=== PATIENT | female | born 1950 | race Two or more races ===

== ENCOUNTER 2016-05-30 23:57 | Emergency (ER) | payer SELFPAY ==
[2016-05-31 00:15] VITALS: TEMP 98.8; BMI 21.2
[2016-05-31] MEDS ORDERED: NS 1,000 ML IV ONE (00:38)
--- NOTE | 2016-05-31 00:41 | EDPRACDOC ---
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 PT SAID THAT IT BECAME INFLAMED AND MORE PAINFUL TODAY. SHE ALSO HAD SOME VOMITING. SHE FEELS BETTER NOW. Pain Location: Reports: LLQ Pain Context: Reports: Spontaneous Pain Severity: Moderate Pain Quality: Reports: Sharp Pain Radiation: Reports: No Radiation : No Adult Abdominal History: Reports: Abdominal Surgery Female Abdominal History: Reports: Abdominal Surgery Modifying Factors: improves with: Nothing Female Associated Signs & Symptoms: Reports: Nausea, Vomiting Oral Intake: Decreased Urinary Output: Decreased ED Past Medical History - Patient Medical History Cardiac History: Reports: Hypertension, Hypercholesterolemia Systemic History: Reports: Diabetes. Denies: Cancer Surgical History: Reports: Other (CSXN). Denies: Hysterectomy - Social Medical History Smoking Status: Never smoker ETOH: None Substance Abuse: None EDM Review of Systems - Review of Systems ROS Negative Except as Marked: Yes All systems reviewed and were negative except as marked Gastrointestinal: Nausea, Pain, Vomiting - Physical Exam Constitutional: Alert (Awake), No apparent distress Oriented to: Time, Person, Place Last recorded Vital Signs: Last Vital Signs Temp 98.8 F 05/31/16 00:04 Pulse 89 05/31/16 00:04 Resp 22 05/31/16 00:04 BP 164/80 05/31/16 00:04 Pulse Ox 97 05/31/16 00:04 Oxygen Pulse Oxygen Saturation 97 O2 Device Room Air Oxygen Flow Rate Fraction of Inspired Oxygen ( FIO2) - HEENT Head: Normal ( normocephalic) Eye Exam: Normal (PERRL, EOMI, Sclera white) Oropharynx: Normal (Pharynx:Moist without exudate,Gums-no swelling) ENT EAC: Normal TMJ: Normal Nose: No Symptoms Reported (septum midline) Neck: Normal (FROM, trachea at midline) - Respiratory/Cardiovascular Respiratory: Normal - CTA (BBS clear to auscultation without adventitious sounds ) Cardiovascular: Normal (RRR without murmur, gallop or rub) - GI Auscultation: Normal (NABS) Palpation: Normal (Soft,No rebound or guarding, non distended) Tenderness: Mild, LLQ, Other (LARGE LLQ HERNIA. EASILY REDUCIBLE.) Allred's Sign: Negative - Hernia: Right: Normal, Left: Reducible - Musculoskeletal Back: Normal (Non-Tender) Extremities: Normal (Normal tone, Pulses 2+ No cyanosis or edema, FROM) - Integumentary Skin: Normal, Warm, Dry Lymphatics: Normal (no adenopathy) - Neurologic Memory Impaired: Normal Motor Function: Normal (Normal tone, Pulses 2+ No cyanosis or edema, FROM) Cranial Nerve: Normal (CN II-X11 intact sensation, strength 5/5) Cerebellar: Normal Mood Description: Normal Thought: Coherent Perception: Normal - Results 05/31/16 00:37 05/31/16 00:37 WBC 9.9 xk/uL (3.8-10.8) 05/31/16 00:37 RBC 4.74 xM/uL (4.20-5.40) 05/31/16 00:37 Hgb 14.8 g/dL (12.0-16.0) 05/31/16 00:37 Hct 43.3 % (36-47) 05/31/16 00:37 MCV 91 fL (81-99) 05/31/16 00:37 MCH 31.1 pg (27-32) 05/31/16 00:37 MCHC 34.1 g/dl (33-36) 05/31/16 00:37 RDW 12.9 % (11.5-14.5) 05/31/16 00:37 Plt Count 231 xk/uL (130-400) 05/31/16 00:37 MPV 8.0 fL (7.4-10.4) 05/31/16 00:37 Neut % (Auto) 60.9 % (45-76) 05/31/16 00:37 Lymph % (Auto) 32.5 % (17-44) 05/31/16 00:37 [place] % (Auto) 5.6 % (3-10) 05/31/16 00:37 Eos % (Auto) 0.7 % (0-5) 05/31/16 00:37 Baso % (Auto) 0.3 % (0-2) 05/31/16 00:37 Absolute Neuts (auto) 5.94 xk/uL (1.7-8.2) 05/31/16 00:37 Absolute Lymphs (auto) 3.17 xk/uL (0.65-4.75) 05/31/16 00:37 PT 10.6 SEC (9.2-11.2) 05/31/16 00:37 INR 1.0 05/31/16 00:37 APTT 22.8 SEC (22-35) 05/31/16 00:37 Sodium 135 mEq/L (137-146) L 05/31/16 00:37 Potassium 3.6 mEq/L (3.5-5.1) 05/31/16 00:37 Chloride 100 mEq/L (98-107) 05/31/16 00:37 Carbon Dioxide 21 mMOL/L (22-33) L 05/31/16 00:37 Anion Gap 18 mEq/L (8-16) H 05/31/16 00:37 BUN 13 MG/DL (7-17) 05/31/16 00:37 Creatinine 0.40 MG/DL (0.52-1.04) L 05/31/16 00:37 Estimated GFR (MDRD) > 60 mL/min (>=60) 05/31/16 00:37 Glucose 339 MG/DL (70-99) H 05/31/16 00:37 Calculated Osmolality 273 MOs/Kg (270-290) 05/31/16 00:37 Lactic Acid 1.6 mEq/L (0.7-2.1) 05/31/16 00:37 Calcium 8.8 MG/DL (8.4-10.2) 05/31/16 00:37 Total Bilirubin 0.6 MG/DL (0.2-1.3) 05/31/16 00:37 AST 22 IU/L (14-36) 05/31/16 00:37 ALT 34 IU/L (9-52) 05/31/16 00:37 Alkaline Phosphatase 127 IU/L (55-165) 05/31/16 00:37 Troponin I < 0.01 ng/mL (<.04) 05/31/16 00:37 Total Protein 7.9 G/DL (6.3-8.2) 05/31/16 00:37 Albumin 4.1 G/DL (3.5-5.0) 05/31/16 00:37 Lipase 98 U/L (23-300) 05/31/16 00:37 Lab Results 05/31/16 05/31/16 05/31/16 00:37 00:37 00:37 WBC 9.9 RBC 4.74 Hgb 14.8 Hct 43.3 MCV 91 MCH 31.1 MCHC 34.1 RDW 12.9 Plt Count 231 MPV 8.0 Neut % (Auto) 60.9 Lymph % (Auto) 32.5 [place] % (Auto) 5.6 Eos % (Auto) 0.7 Baso % (Auto) 0.3 Absolute Neuts (auto) 5.94 Absolute Lymphs (auto) 3.17 PT 10.6 INR 1.0 APTT 22.8 Sodium Potassium Chloride Carbon Dioxide Anion Gap BUN Creatinine Estimated GFR (MDRD) Glucose Calculated Osmolality Lactic Acid 1.6 Calcium Total Bilirubin AST ALT Alkaline Phosphatase Troponin I Total Protein Albumin Lipase 05/31/16 00:37 WBC RBC Hgb Hct MCV MCH MCHC RDW Plt Count MPV Neut % (Auto) Lymph % (Auto) [place] % (Auto) Eos % (Auto) Baso % (Auto) Absolute Neuts (auto) Absolute Lymphs (auto) PT INR APTT Sodium 135 L Potassium 3.6 Chloride 100 Carbon Dioxide 21 L Anion Gap 18 H BUN 13 Creatinine 0.40 L Estimated GFR (MDRD) > 60 Glucose 339 H Calculated Osmolality 273 Lactic Acid Calcium 8.8 Total Bilirubin 0.6 AST 22 ALT 34 Alkaline Phosphatase 127 Troponin I < 0.01 Total Protein 7.9 Albumin 4.1 Lipase 98 - EKG EKG #1 EKG Time: 00:50 -: Yes EKG interpreted by me Rate: bpm: 92 [place]: Normal Rhythm: NSR Block: None Hypertrophy: None ST: Normal Comments: NO OLD - Diagnostic Imaging Abdomen Image interpreted by: Radiologist 05/31/16 01:35 1. Herniation of the distal ileum into a moderate to large left anterior abdominal wall hernia below the level of the umbilicus. Associated ileal wall thickening, compatible with incarceration, and small amount of associated free fluid seen. No evidence for obstruction at this time. 2. Nonspecific 3.7 cm right adnexal cystic focus. Pelvic ultrasound would be helpful for further evaluation, on an elective nonemergent basis. Chest Image interpreted by: Radiologist 05/31/16 01:48 No active disease. - Additional Information PT'S PAIN IS TOTALLY GONE W/O PAIN MEDS. I SUSPECT THAT THE HERNIA WAS INCARCERATED AT HOME AND REDUCED ITSELF. Decision Time to Discharge: 01:52 - Departure Yes I personally saw and evaluated the patient. Disposition: Home Condition: Fair Final Diagnosis: Poorly controlled type 2 diabetes mellitus, LEFT ANTERIOR ABD WALL HERNIA Instructions: Ventral Hernia (ED), Diabetes Mellitus Type 2 in Adults (ED) Education/Counseling Given To: Patient, Family Member Education/Counseling Given Regarding: Diagnosis, Treatment, Follow Up Referrals: None,No Provider [Primary Care Provider] - One Week Hernando Serrano MD [Staff Physician] - One Week Jonny Ascencio MD [Staff Physician] - One Week Prescriptions: New Metformin HCl [Metformin HCl ER] 500 mg PO DAILY #30 tab Forms: Patient Discharge Instructions, ED Discharge Instructions Additional Instructions: DON'T START METFORMIN UNTIL 06/03 DUE TO THE IV CONTRAST IN THE CT SCAN. DIABETIC DIET. F/U WITH DR. SERRANO FOR DIABETES F/ WITH DR. ASCENCIO FOR HERNIA
[2016-05-31 00:56] LABS: AUTOMATED BASOPHIL 0.3 % (0-2); AUTOMATED EOSINOPHIL 0.7 % (0-5); AUTOMATED LYMPH 32.5 % (17-44); AUTOMATED MONOCYTE 5.6 % (3-10); AUTOMATED NEUTROPHIL 60.9 % (45-76)
[2016-05-31] MEDS ORDERED: Pharmacy Review for Metformin - IV Contrast Given SCH (01:00)
[2016-05-31 01:05] LABS: BLOOD UREA NITROGEN 13 MG/DL (7-17); CALCIUM 8.8 MG/DL (8.4-10.2); CALCULATED OSMOLALITY 273 MOs/Kg (270-290); CHLORIDE 100 mEq/L (98-107); GLUCOSE 339 MG/DL (70-99); SODIUM LEVEL 135 mEq/L (137-146); TOTAL PROTEIN 7.9 G/DL (6.3-8.2)
[2016-05-31 01:09] LABS: PARTIAL THROMB. TIME 22.8 SEC (22-35)
[2016-05-31] MEDS ORDERED: REGULAR INSULIN 100 UNITS/ML - 3 ML VIAL IV ONE (01:11)
--- NOTE | 2016-05-31 01:33 | DIRPT ---
CLINICAL DATA: Acute onset of left lower quadrant abdominal pain. Known left lower quadrant abdominal wall hernia. Nausea and vomiting. Initial encounter. EXAM: CT ABDOMEN AND PELVIS WITH CONTRAST TECHNIQUE: Multidetector CT imaging of the abdomen and pelvis was performed using the standard protocol following bolus administration of intravenous contrast. CONTRAST: 100 mL of Isovue 370 IV contrast COMPARISON: None. FINDINGS: The visualized lung bases are clear. The liver and spleen are unremarkable in appearance. The gallbladder is within normal limits. The pancreas and adrenal glands are unremarkable. The kidneys are unremarkable in appearance. There is no evidence of hydronephrosis. No renal or ureteral stones are seen. No perinephric stranding is appreciated. No free fluid is identified. The small bowel is unremarkable in appearance. The stomach is within normal limits. No acute vascular abnormalities are seen. There is herniation of the distal ileum into a moderate to large left-sided anterior abdominal wall hernia below the level of the umbilicus. There is associated ileal wall thickening, compatible with incarceration, and a small amount of associated free fluid is seen. There is no evidence of obstruction at this time. The appendix is normal in caliber, without evidence for appendicitis. The colon is unremarkable in appearance. The bladder is significantly distended and grossly unremarkable. The uterus is unremarkable in appearance. A 3.7 cm right adnexal cystic focus is nonspecific. The ovaries are otherwise unremarkable. No inguinal lymphadenopathy is seen. No acute osseous abnormalities are identified. IMPRESSION: 1. Herniation of the distal ileum into a moderate to large left anterior abdominal wall hernia below the level of the umbilicus. Associated ileal wall thickening, compatible with incarceration, and small amount of associated free fluid seen. No evidence for obstruction at this time. 2. Nonspecific 3.7 cm right adnexal cystic focus. Pelvic ultrasound would be helpful for further evaluation, on an elective nonemergent basis. Electronically Signed By: Lester Sahu M.D. On: 05/31/2016 01:31
--- NOTE | 2016-05-31 01:47 | DIRPT ---
CLINICAL DATA: Left lower quadrant hernia for years. Hernia is inflamed and more painful today. Vomiting. EXAM: PORTABLE CHEST 1 VIEW COMPARISON: None. FINDINGS: The heart size and mediastinal contours are within normal limits. Both lungs are clear. The visualized skeletal structures are unremarkable. IMPRESSION: No active disease. Electronically Signed By: Adrian Dee M.D. On: 05/31/2016 01:44
[2016-05-31 01:59] LABS: LEUKOCYTES/URINE NEG (NEGATIVE); NITRITE/URINE NEG (NEGATIVE); RBC/URINE 0-2 (0-5); URINE OCCULT BLOOD NEG (NEG/TRACE); WBC/URINE 0-2 (0-5)
[2016-05-31 02:27] VITALS: BP 129/61; PULSE 93
== END 2016-05-31 02:25 | disposition home or self-care (01) ==
LOC: ED 23:57
DX: E11.65 Type 2 diabetes mellitus with hyperglycemia (principal); K43.9 Ventral hernia without obstruction or gangrene
CPT/HCPCS: 36415; 71010; 74177; 80053; 81001; 82962; 83605; 83690; 84484; 85025; 85610; 85730; 93005; 96361; 96374; 99283; A9698; J3490